=== PATIENT | female | born 1945 | race Caucasian/White ===

== ENCOUNTER 2025-06-23 09:27 | Inpatient (IN) | payer MEDICARE, BC, SELFPAY ==
--- NOTE | 2025-06-04 11:19 | CM ---
Demographics: confirmed, staying with sister post operatively.
Living situation: Lives alone in a first floor condo, but will be staying with sister
Support Person Post Operatively: Sister
History of
VN: No
SNF: No
Outpatient: [facility], appointment made for 06/25
Has patient purchased required equipment: yes
PCP: confirmed
Pharmacy: [facility]
Post Operative Discharge Plan: Plan to stay with sister, outpatient PT/OT.
[2025-06-08 11:37] LABS: Hematocrit 37.3 % (37.0-47.0); Hemoglobin 12.5 g/dL (12.0-16.0); Mean Corp Hgb Conc. 33.5 g/dL (33.0-37.0); Mean Corpuscular Volume 95.2 fL (81.0-99.0); Platelet Count 294 10^3/uL (130-400); Red Cell Dist. Width 12.8 % (11.5-14.5)
[2025-06-08 12:09] LABS: ALT (SGPT) 19 U/L (0-35); AST (SGOT) 23 U/L (14-36); Albumin 4.1 g/dl (3.5-5.0); Alkaline Phosphatase 72 U/L (38-126); Blood Urea Nitrogen 20 mg/dl (7-17); Calcium 10.0 mg/dl (8.4-10.2); Carbon Dioxide 28 mmol/L (22-30); Chloride 105 mmol/L (98-107); Glucose 80 mg/dl (70-99); Potassium 3.9 mmol/L (3.5-5.1); Sodium 136 mmol/L (135-145); Total Protein 7.1 g/dl (6.3-8.2); eGFR > 60.00
[2025-06-08 12:47] LABS: Glycohemoglobin (HgbA1c) 5.1 % (4.0-5.6)
[2025-06-08 13:57] VITALS: BMI 28.6
[2025-06-09 16:40] VITALS: BMI 28.6
[2025-06-23] VITALS (10 sets, daily range): BP systolic 95–160; BP diastolic 45–67; PULSE 63–67; O2SAT 98
--- NOTE | 2025-06-23 07:38 | W.PN.UPDATE ---
Update Note
Progress Note Update
L hip OA s/p L ELIZABETH w/ Dr Walker 06/23/25
- EARLY DISCHARGE
DVT prophylaxis - ASA, b/l venous foot pumps
HTN - + parameters - monitor BP
Chronic DUARTE - monitor O2
- IS
- Decadron to aid in lung perfusion
Recent DYLAN secondary to Meloxicam, resolved - minimize nephrotoxins post-op
Ambulatory dysfunction - on fall precautions
Hypercholesterolemia
Sinus bradycardia, asymptomatic
Infrequent palpitations
Right carotid aneurysm, status post craniotomy and right carotid ligation 2002
Chronic venous insufficiency
Childhood hepatitis
Vertigo
Hypothyroidism
Stress incontinence
Depression
Gout
Glaucoma
Insomnia
Hearing impairment
Remote history of tobacco abuse
[2025-06-23] MEDS: NORMOSOL-R/PLASMALYTE-A 1000 IV ×2 (09:45→14:25)
[2025-06-23] MEDS: ULTRAM 50 MG PO ×2 (13:35→17:23)
[2025-06-23] MEDS: TYLENOL 650 MG PO ×2 (14:25→20:39)
[2025-06-23] MEDS: VITAMIN C 500 MG PO (15:55)
[2025-06-23] MEDS: ZYLOPRIM 100 MG PO (15:55)
[2025-06-23] MEDS: TYLENOL PO (15:56)
--- NOTE | 2025-06-23 16:39 | PTCARENOTE ---
Pt arrived 1400 from PACU. VSS. AAOX3. Neurovascular checks WNL. L hip dressing C/D/I. Oriented to room and call aquino. Bed locked and in lowest position.
[2025-06-23] MEDS: ASPIRIN 325 MG PO (17:21)
[2025-06-23] MEDS: SENOKOT 17.2 MG PO (20:35)
[2025-06-23] MEDS: COLACE 100 MG PO (20:35)
[2025-06-23] MEDS: DECADRON 4 MG PO (20:36)
[2025-06-23] MEDS: ANCEF 5 IV (20:38)
[2025-06-23] MEDS: BACTROBAN 2% OINTMENT 1 APPLIC NASAL (20:38)
[2025-06-23] MEDS: NEURONTIN 300 MG PO (22:08)
[2025-06-23] MEDS: TENORMIN 50 MG PO (22:09)
[2025-06-23] MEDS: PEPCID 20 MG PO (22:09)
[2025-06-23] MEDS: ZOLOFT 25 MG PO (22:09)
[2025-06-23] MEDS: LIPITOR 10 MG PO (22:10)
[2025-06-23] MEDS: AMBIEN 5 MG PO (22:14)
[2025-06-24] MEDS: TYLENOL PO ×2 (01:06→12:12)
[2025-06-24 02:50] VITALS: BP 146/57
[2025-06-24 02:53] LABS: Glucose - Point of Care 169 mg/dl (70-99)
--- NOTE | 2025-06-24 03:00 | W.PN.UPDATE ---
Update Note
Progress Note Update
RN reported patient had a fall. Patient was seen and evaluated.
Patient noted to be laying on her left side, AAO to name , varun and the current president but she thinks she is at [facility] which is afflicted with [facility], [facility]. States she was in the bathroom and was trying to come out to the bed
with the walker and her Right leg got in the way and fell on to her right side. Able to follow commands, able to move 4 extremities without any difficulties. Hematoma noted above Right eye, no other bruises, swelling cuts. Left Hip with dressing
intact. Denies dizziness, nausea, vomiting at present. Patient is aware of what happened and understands the tests to be ordered. VSS
Will order CT scan of Head, and Orbits to rule out any bleed, fx, NIH 0
ice to right eye prn
labs
NIH scale
Dr. Santiago made aware.
[2025-06-24] MEDS: ANCEF 5 IV (03:27)
[2025-06-24] MEDS: TYLENOL 650 MG PO ×2 (03:27→10:20)
--- NOTE | 2025-06-24 04:43 | PTCARENOTE ---
pt had unwitnessed fall attempting to walk back to bed from bathroom. Pt was using rolling walker, stated right leg 'felt wobbly' and in an attempt to reach for chair had fallen. Pt states she hit her forehead. Pt was found on her right side. Pt has
swelling and bruising starting to form on R side of forehead above eye. SWEATER OPERATOR Hephziba notified and at bedside to evaluate pt. Pt vitals are stable, is able to move all extremities, NIHSS is within normal limits. AAOx3 as before/baseline. Pt denies
any new or increased pain other than left hip from surgery (states mostly with movement). Pt sent for CT head. Bed alarm on and activated and fall risk bracelet placed. Pt reeducated on fall precautions and proper use of call aquino.
[2025-06-24 05:26] LABS: Hematocrit 28.2 % (37.0-47.0); Hemoglobin 9.9 g/dL (12.0-16.0); Mean Corp Hgb Conc. 35.1 g/dL (33.0-37.0); Mean Corpuscular Volume 91.9 fL (81.0-99.0); Platelet Count 251 10^3/uL (130-400); Red Cell Dist. Width 12.1 % (11.5-14.5)
[2025-06-24 05:49] LABS: Magnesium 2.0 mg/dl (1.6-2.3)
[2025-06-24 05:51] LABS: Blood Urea Nitrogen 21 mg/dl (7-17); Calcium 9.2 mg/dl (8.4-10.2); Carbon Dioxide 27 mmol/L (22-30); Chloride 104 mmol/L (98-107); Estimated Creatinine Clearance 56 ml/min; Glucose 135 mg/dl (70-99); Potassium 4.4 mmol/L (3.5-5.1); Sodium 136 mmol/L (135-145); eGFR > 60.00
[2025-06-24] MEDS: ULTRAM 50 MG PO ×2 (05:56→10:41)
[2025-06-24] MEDS: SYNTHROID 75 MCG PO (05:56)
--- NOTE | 2025-06-24 06:03 | PTCARENOTE ---
Orthopedic trigonometry tutor (Jack) made aware of pt fall, results of CT scan and if pt should still receive 0600 ultram. instructed this rn to still give scheduled pain medication.
[2025-06-24 08:00] VITALS: BP 112/59
--- NOTE | 2025-06-24 09:58 | W.PN.ORTHO ---
Today's Communication / Plan
-
Await x-ray results.
Work w/ PT and OT when deemed stable. D/c plan may need to be adjusted given events of last night.
D/c as early as later today pending clinical stability.
Assessment
.
Distal Motor Intact: Yes
Dressing:
Clean, dry and intact.
Assessment:
L hip OA s/p L ELIZABETH w/ Dr Walker 06/23/25
- EARLY DISCHARGE d/c d/t fall overnight. See below for details
DVT prophylaxis - ASA, b/l venous foot pumps
Unwitnessed fall overnight - per pt: went to bathroom w/ PCT. After a few minutes, she got up, washed her hands, and proceeded to walk w/ her rolling walker. Pt DID NOT ring call aquino but instead stepped out of bathroom by herself to see if PCT was
waiting there. Pt then proceeded to attempt to walk to bed by herself. She took two steps, right leg felt 'wobbly' and she tried to catch herself w/ the chair next to the bed. Unfortunately, she was not able to do so. She fell on her right side and
struck her R-sided forehead. As of this morning, she does have a notable R eye hematoma. Ice advised.
- Head/Orbits CT: No acute intracranial abnormality. No acute fracture identified. 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
- Labs WNL
- Will order x-rays of b/l hips/pelvis to ensure stability. If all OK, can work w/ PT and OT after
- Will d/c Gabapentin HS in the event this contributed to fall. Has tolerated Tramadol in past w/o issue (see pre-op med list)
- Continue fall precautions
- Did advise pt to ring her call in the event she needs to get up during admission. She and sister present expressed understanding
- Reassess d/c planning after PT and OT sessions. Plan as of now: Outpatient PT at [facility]. Pt to stay in sisters handicapped accessible 1 story home. Sister will be there for assistance
- Did speak to Rachel house manager re: RN/PCT reinforcement of verbalizing calls bells in bathroom to prevent further patient falls
HTN - + parameters - BPs stable
Chronic DUARTE - O2 stable on RA w/ measures below
- IS
- Decadron to aid in lung perfusion
Recent DYLAN secondary to Meloxicam, resolved - minimized nephrotoxins post-op
Ambulatory dysfunction - on fall precautions
Hypercholesterolemia
Sinus bradycardia, asymptomatic
Infrequent palpitations
Right carotid aneurysm, status post craniotomy and right carotid ligation 2002
Chronic venous insufficiency
Childhood hepatitis
Vertigo
Hypothyroidism
Stress incontinence
Depression
Gout
Glaucoma
Insomnia
Hearing impairment
Remote history of tobacco abuse
Plan
.
Surgery / Date: Javad JOHNSON w/ Dr Walker 06/23/25
DVT Prophylaxis: Aspirin
Activity:
Out of bed.
PT/OT
Discharge Plan: Home w/ Outpatient PT (will await PT/OT recs however )
Subjective
.
.:
Patient resting comfortably in bed this AM.
Unwitnessed fall overnight w/o loss of consciousness.
B/l hip x-rays pending.
Vital Signs and Labs
.
Vital Signs and Labs:
Lab Results
06/24/25 05:11
06/24/25 05:11
Temp Pulse Resp BP Pulse Ox
97.5 F 75 18 112/59 98
06/24/25 08:00 06/24/25 08:00 06/24/25 08:00 06/24/25 08:00 06/24/25 08:00
Non-invasive Hgb result: 9.8
Physical Exam
-
HEENT: No pallor, cyanosis, or jaundice. Throat clear. R eye hematoma secondary to fall.
NECK: Supple. No JVD.
RESPIRATORY: Lungs clear to auscultation.
CVS: S1, S2 normal. RRR.�
ABDOMEN: Soft, non-tender. No distension.
EXTREMITIES: Strength equal, no calf pain with palpation/dorsiflexion. Calves soft.
MECHANICAL ENGINEERING TECHNICIAN: AOx3. No focal deficits. do all operator grossly intact
[2025-06-24] MEDS: BACTROBAN 2% OINTMENT 1 APPLIC NASAL (10:19)
[2025-06-24] MEDS: COLACE 100 MG PO (10:20)
[2025-06-24] MEDS: ASPIRIN 325 MG PO (10:20)
[2025-06-24] MEDS: SENOKOT 17.2 MG PO (10:21)
[2025-06-24] MEDS: DECADRON 4 MG PO (10:30)
[2025-06-24] MEDS: ZYLOPRIM 100 MG PO (10:30)
[2025-06-24] MEDS: VITAMIN C 500 MG PO (10:30)
--- NOTE | 2025-06-24 11:01 | CM ---
Cm reviewed medical records. Patient is currently off the floor for imaging. CM will await PT/OT evaluation for further recommendations.
PLAN: Pending PT/OT evaluation.
[2025-06-24] MEDS: LIDOCAINE 4% PATCH 2 PATCH TOPICAL (11:17)
[2025-06-24 12:14] VITALS: BP 129/53; PULSE 69
--- NOTE | 2025-06-24 12:42 | W.PN.UPDATE ---
Update Note
Progress Note Update
Spoke w/ surgeon re: d/c planning for patient.
First off, will switch ASA for DVT prophylaxis from 325 mg daily to 81 mg PO BID for 4 weeks d/t right eye hematoma. Ice encouraged.
Second, prior to fall overnight, patient initially planned to stay w/ sister in her 1 story, handicap accessible home upon d/c. Pt's sister would drive to [facility] for outpatient PT starting tomorrow.
Given fall, SNF was considered greatly; however, patient and sister reportedly adamant about pt being d/c to facility.
It was STRESSED that the patient will need frequent cues re: her hip precautions.
Pt will also need assistance during ALL times of mobility to prevent falls.
Pt's sister is agreeable to all of this and expresses no concerns. Will plan to d/c.
--- NOTE | 2025-06-24 12:50 | W.DS.TRANS ---
DC Summary - [employer]
-
Discharge Instructions:
Sleep Apnea Risk Low
Discharge Diagnosis/Procedures L hip OA s/p L ELIZABETH w/ Dr Walker 06/23/25
Diet Other diet
Additional Diets Diabetic carb controlled x1 week for wound
healing/infection prevention.
Adequate hydration, minimize opioids, and wear
TEDs stockings to prevent low blood pressure/
dizziness.
Activity As tolerated,With Walker,With assistance
Additional Activity Patient will need assistance with remembering
hip precautions and with ALL mobility to prevent
falls.
Driving Restrictions Not until seen by your Dr
Bathing Restrictions OK to Shower
Other Services PT
Wound Care Dressing to be removed 1 week post-surgery.
Instructions:
Stand-Alone Forms: Total Hip/Knee Replacement D/C
Changes to Home Medications: Yes
Discharge Medications:
DC Medications w/original date entered in [facility]
allopurinol 100 mg tablet 100 mg PO DAILY 06/03/25
ascorbic acid (vitamin C) 500 mg tablet (Vitamin C) 500 mg PO DAILY 06/03/25
atenolol 50 mg tablet 50 mg PO HS 06/03/25
estradiol 0.01% (0.1 mg/gram) vaginal cream 1 appful vaginal Q96H 06/03/25
levothyroxine 75 mcg tablet 75 mcg PO DAILY 06/03/25
lovastatin 20 mg tablet 20 mg PO HS 06/03/25
mecobalamin (vitamin B12) 1,000 mcg chewable tablet (B12 Active) 1,000 mcg PO DAILY 06/03/25
multivitamin 1 tab PO DAILY 06/03/25
sertraline 25 mg tablet 25 mg PO HS 06/03/25
mupirocin 2 % topical ointment 1 applic intranasal BID #1 tube 06/08/25
dexamethasone 4 mg tablet 4 mg PO BID Anti-inflammatory #5 tabs 06/15/25
famotidine 20 mg tablet (Pepcid) 20 mg PO HS #30 tabs 06/15/25
ondansetron HCl 4 mg tablet 4 mg PO Q6H PRN nausea and vomiting #30 tabs 06/15/25
tramadol 50 mg tablet 50 - 100 mg (1 - 2 x 50 mg) PO Q6H PRN moderate-severe pain #30 tabs 06/15/25
acetaminophen 500 mg tablet 1,000 mg (2 x 500 mg) PO Q6H pain #60 tabs 06/24/25
aspirin 81 mg tablet 81 mg PO BID #60 tabs 06/24/25
docusate sodium 100 mg capsule 100 mg PO BID #30 caps 06/24/25
losartan 50 mg tablet 50 mg PO HS #1 tab 06/24/25
magnesium hydroxide 400 mg/5 mL oral suspension (Milk of Magnesia) 30 ml PO HS PRN constipation #3,780 mL 06/24/25
sennosides 8.6 mg tablet (Justine-damaso) 17.2 mg (2 x 8.6 mg) PO BID #30 tabs 06/24/25
zolpidem 5 mg tablet (Ambien) 5 mg PO HS PRN sleep #1 tab 06/24/25
Home Medication Changes
dexamethasone 4 mg tablet 4 mg PO BID Anti-inflammatory #5 tabs 06/15/25
famotidine 20 mg tablet (Pepcid) 20 mg PO HS #30 tabs 06/15/25
ondansetron HCl 4 mg tablet 4 mg PO Q6H PRN nausea and vomiting #30 tabs 06/15/25
tramadol 50 mg tablet 50 - 100 mg (1 - 2 x 50 mg) PO Q6H PRN moderate-severe pain #30 tabs 06/15/25
acetaminophen 500 mg tablet 1,000 mg (2 x 500 mg) PO Q6H pain #60 tabs 06/24/25
aspirin 81 mg tablet 81 mg PO BID #60 tabs 06/24/25
docusate sodium 100 mg capsule 100 mg PO BID #30 caps 06/24/25
magnesium hydroxide 400 mg/5 mL oral suspension (Milk of Magnesia) 30 ml PO HS PRN constipation #3,780 mL 06/24/25
sennosides 8.6 mg tablet (Justine-damaso) 17.2 mg (2 x 8.6 mg) PO BID #30 tabs 06/24/25
Pending Results: No
--- NOTE | 2025-06-24 13:44 | CM ---
CM reviewed medical records. Despite counseling otherwise, patient has decided for home discharge with outpatient therapy and family support.
PLAN: home with outpatient PT.
[2025-06-24 14:00] VITALS: BP 129/53; PULSE 69
== END 2025-06-24 15:31 | disposition home or self-care (01) | DRG 470 ==
LOC: 2 SOUTH 09:27
PROVIDERS: Nurse Practitioner Gerontology; ADMITTING PHYSICIAN Orthopaedic Surgery; FAMILY PHYSICIAN Internal Medicine; REFERRING PHYSICIAN Internal Medicine Cardiovascular Disease
PROC: 0SRB03A Replacement of Left Hip Joint with Ceramic Synthetic Substitute, Uncemented, Open Approach (ICD-10-PCS; 2025-06-24)
DX: M16.12 Unilateral primary osteoarthritis, left hip (principal); N17.9 Acute kidney failure, unspecified; R06.09 Other forms of dyspnea; I10 Essential (primary) hypertension; E78.00 Pure hypercholesterolemia, unspecified; I87.2 Venous insufficiency (chronic) (peripheral); E03.9 Hypothyroidism, unspecified; F32.A Depression, unspecified; G47.00 Insomnia, unspecified; H91.90 Unspecified hearing loss, unspecified ear; Z87.891 Personal history of nicotine dependence; Z88.8 Allergy status to other drugs, medicaments and biological substances; Z90.710 Acquired absence of both cervix and uterus; Z98.41 Cataract extraction status, right eye; Z98.42 Cataract extraction status, left eye
CPT/HCPCS: 36415; 70450; 70480; 73502; 73523; 80048; 80053; 82962; 83036; 83735; 85027; 87070; 93005; 97116; 97162; 97166; 97530; 97535; C1776